=== PATIENT | female | born 1935 | race Caucasian/White ===

== ENCOUNTER → 2016-11-29 | Outpatient (CLI) | payer MEDICARE, OTHER ==
[~2016-11-29] MED LIST: ACCURETIC 20-251 TAB PO; ASPIRIN PO; CALCIUM 600 + D PO; CERTAGEN PO; FENOFIBRATE134 MG PO; FOSAMAX PO; LIPITOR PO; LOVASTATIN20 M1 PO; METFORMIN HCL500 M1 PO; OSTEO BI-FLEX1 EACH PO; PRINIVIL40 MG PO; [UNRECOGNIZED DRUG - OTHER] PO
--- NOTE | ~2016-11-29 | MY29 ---
[facility] A Service of [facility] & [facility] RADIOLOGY TEXT RESULTS PATIENT: KIRA OCAMPO LOCATION: [facility] : 35 UNIT #: [id number] AGE: [address]: Silvio Muro MD SEX: F ORDER DR: [id number] [facility] [address] [place], [place] [address] [id number] MR#: [id number] Acc #: [id number] NAME: KIRA OCAMPO : 1935 SEX: F STUDY DATE/TIME: 11/29/2016 11:39 UNIT: [facility] ROOM: STUDY DESCRIPTION: MY ADELE SCREENING W/ CAD BILAT Attending Physician: Silvio Muro M.D. Ordering Physician: Silvio Muro M.D. Primary Care Physician: Silvio Muro M.D. MEDICAL IMAGING REPORT This report is preliminary unless electronic signature is present EXAM Digital screening mammogram, 11/29/2016, [facility]. HISTORY 81-year-old woman; no risk elevation. Annual screening. COMPARISON Comparison mammograms date to 08/27/2006 with most recent screening 08/03/2014. FINDINGS Digital imaging of each breast was completed, utilizing screening protocol. Review includes FDA-approved CAD device. Breast parenchyma is partially fatty replaced bilaterally. Previously present small left subareolar nodule is no longer present. There is no suspicious mass. There are no interval occurring microcalcifications and no architectural deformity. IMPRESSION Negative mammogram. Annual screening recommended. Patients over the age of 40 are entered into a reminder system with target due date for the next mammogram. A result letter will also be sent to the patient. BIRADS: 1 Negative Dictated by... Maynor Worley M.D. THIS IS AN ELECTRONICALLY VERIFIED REPORT [facility] A Service of [facility] & [facility] RADIOLOGY TEXT RESULTS PATIENT: KIRA OCAMPO LOCATION: [facility] : 35 UNIT #: [id number] AGE: [address]: Silvio Muro MD SEX: F ORDER DR: Maynor Worley M.D. at 11/30/2016 8:03 AM PRAMOD/deborah TD: 11/29/2016 16:15 JOB #: [id number] MEDICAL IMAGING REPORT Page 1 of 1 COPY
== END | disposition home or self-care (01) ==
LOC: CWCC 11:00
DX: Z12.31 Encounter for screening mammogram for malignant neoplasm of breast (principal)
CPT/HCPCS: G0202